=== PATIENT | female | born 1980 | race Caucasian/White ===

== ENCOUNTER 2022-10-27 15:40 | Inpatient (IN) | payer OTHER ==
[2022-10-27 17:27] VITALS: BMI 17.1
[2022-10-27] MEDS ORDERED: hydrOXYzine PAMOATE 25 MG CAPSULE (FP) PO PRN (22:25)
[2022-10-27] MEDS ORDERED: POLYETHYLENE GLYCOL (HEALTHYLAX) 3350 17 GM PACKET PO PRN (22:25)
[2022-10-27] MEDS ORDERED: NALOXONE HCL (KLOXXADO) 8 MG SPRAY NS PRN (22:25)
[2022-10-27] MEDS ORDERED: COLLOIDAL OATMEAL 1 BAR EACH TP PRN (22:25)
[2022-10-27] MEDS ORDERED: AMMONIUM LACTATE 12% LOTION 225 GM BOTTLE TP PRN (22:25)
[2022-10-27] MEDS ORDERED: NALOXONE HCL 0.4 MG/ML VIAL IM PRN (22:25)
[2022-10-27] MEDS ORDERED: P-EPHED 60MG/TRIPROLIDI 2.5MG TABLET PO PRN (22:25)
[2022-10-27] MEDS ORDERED: BENZONATATE 200 MG CAPSULE PO PRN (22:25)
[2022-10-27] MEDS ORDERED: LOPERAMIDE HCL 2 MG CAPSULE PO PRN (22:25)
[2022-10-27] MEDS ORDERED: MAGNESIUM HYDROX 2400MG/30ML ORAL SUSPENSION 30 ML CUP PO PRN (22:25)
[2022-10-27] MEDS ORDERED: ACETAMINOPHEN 325 MG TABLET (FP) PO PRN (22:25)
[2022-10-27] MEDS ORDERED: MAG HYDROX/AL HYDROX/SIMETH 30 ML UNIT-DOSE CUP PO PRN (22:25)
[2022-10-27] MEDS ORDERED: guaiFENesin 600 MG TABLET.ER (FP) PO PRN (22:25)
[2022-10-27] MEDS ORDERED: BENZOCAINE/MENTHOL (CHLORASEPTIC ) LOZENGE MM PRN (22:25)
[2022-10-28] MEDS ORDERED: MELATONIN 5 MG TABLETS PO SCH (01:15)
[2022-10-28] MEDS: BACITRACIN ZINC 15 GM TUBE TOPICAL OINTMENT TP SCH ×3 (01:19→21:36)
[2022-10-28] MEDS: MELATONIN 5 MG TABLETS PO SCH ×2 (01:23→21:38)
[2022-10-28] MEDS: NICOTINE POLACRILEX 2 MG GUM BUC PRN ×3 (01:37→21:42)
[2022-10-28] MEDS ORDERED: ALBUTEROL SO4 HFA INHALER IH PRN (08:58)
[2022-10-28] MEDS ORDERED: methaDONE HCL 10 MG TABLET PO SCH (09:00)
[2022-10-28] MEDS ORDERED: PATIENT'S OWN MEDICATION (NON-FORMULARY) (Efavirenz/Emtricitab/Tenofovir 1 TAB Tab) PO SCH (10:00)
[2022-10-28] MEDS ORDERED: TUBERCULIN PPD 5 TU/0.1ML SYRINGE (IN PATIENT USE ONLY) ID ONE (10:00)
[2022-10-28] MEDS ORDERED: TUBERCULIN PPD 5 TU/0.1ML VIAL ID ONE (10:18)
[2022-10-28] MEDS: PRENATAL VITAMINS W/ FOLIC ACID TABLET (FP) PO SCH (10:20)
[2022-10-28] MEDS ORDERED: EFAVIRENZ 600 MG TABLET PO SCH (10:30)
[2022-10-28] MEDS ORDERED: EMTRICITABINE 200MG/TENOFOVIR 300MG PO SCH (10:30)
[2022-10-28 11:27] LABS: HEMATOCRIT 33.1 % (32.4-45.2); HEMOGLOBIN 11.1 GM/dL (10.7-15.3); MCH 28.9 pg (25.7-33.7); MCHC 33.7 g/dl (32.0-36.0); MEAN CELL VOLUME 85.9 fl (80-96); MEAN PLT VOLUME 9.2 fl (7.5-11.1); PLATELET COUNT 151 10^3/uL (134-434); RBC 3.85 M/mm3 (3.60-5.2); RDW 15.4 % (11.6-15.6); WHITE BLOOD COUNT 2.1 K/mm3 (4.0-10.0)
[2022-10-28 11:29] LABS: PH,URINE 6.5 (5.0-8.0); URINE APPEARANCE CLEAR; URINE BILIRUBIN NEGATIVE (NEGATIVE); URINE COLOR YELLOW; URINE GLUCOSE (UA) NEGATIVE (NEGATIVE); URINE KETONE NEGATIVE (NEGATIVE); URINE LEUK ESTERASE NEGATIVE (NEGATIVE); URINE NITRITE NEGATIVE (NEGATIVE); URINE PROTEIN NEGATIVE (NEGATIVE)
[2022-10-28 11:32] LABS: POTASSIUM 4.1 mmol/L (3.5-5.1)
[2022-10-28 11:53] LABS: ALBUMIN 3.1 g/dl (3.4-5.0); CALCIUM 8.8 mg/dL (8.5-10.1)
[2022-10-28 11:54] LABS: BLOOD UREA NITROGEN 16.8 mg/dL (7-18)
[2022-10-28 11:56] LABS: CREATININE 0.8 mg/dL (0.55-1.3)
[2022-10-28 11:57] LABS: TOT PROT 6.9 g/dl (6.4-8.2)
[2022-10-28 11:58] LABS: BILIRUBIN,TOTAL 0.2 mg/dL (0.2-1)
[2022-10-28 12:01] LABS: SYPHILIS W/ RPR CONF NON-REACTIVE (NONREACTIVE)
[2022-10-28] MEDS: BICTEGRAV/EMTRICIT/TENOFOV (BIKTARVY) 50-200-25 MG TABLET PO SCH (13:39)
[2022-10-28] MEDS: GABAPENTIN 100 MG CAPSULE PO SCH ×2 (13:39→21:37)
[2022-10-28] MEDS: QUEtiapine FUMARATE 200 MG TABLET PO SCH (21:37)
[2022-10-28] MEDS: MIRTAZAPINE 30 MG TABLET PO SCH (21:37)
[2022-10-28] MEDS: PARoxetine HCL 20 MG TABLET PO SCH (21:38)
[2022-10-28] MEDS: THIAMINE HCL 100 MG TABLET (FP) PO SCH (21:38)
[2022-10-29] MEDS: GABAPENTIN 100 MG CAPSULE PO SCH ×3 (07:08→21:33)
[2022-10-29] MEDS: BICTEGRAV/EMTRICIT/TENOFOV (BIKTARVY) 50-200-25 MG TABLET PO SCH (07:08)
[2022-10-29] MEDS: NICOTINE POLACRILEX 2 MG GUM BUC PRN ×2 (07:13→17:40)
[2022-10-29] MEDS: PRENATAL VITAMINS W/ FOLIC ACID TABLET (FP) PO SCH (09:53)
[2022-10-29] MEDS: BACITRACIN ZINC 15 GM TUBE TOPICAL OINTMENT TP SCH ×2 (09:54→21:41)
[2022-10-29] MEDS: SODIUM CHLORIDE 1 GM TABLET PO SCH (15:12)
[2022-10-29] MEDS: MIRTAZAPINE 30 MG TABLET PO SCH (21:33)
[2022-10-29] MEDS: THIAMINE HCL 100 MG TABLET (FP) PO SCH (21:33)
[2022-10-29] MEDS: QUEtiapine FUMARATE 200 MG TABLET PO SCH (21:33)
[2022-10-29] MEDS: PARoxetine HCL 20 MG TABLET PO SCH (21:39)
[2022-10-29] MEDS ORDERED: SULFAMETHOXAZOLE/TRIMETHOPRIM 800MG/160MG D.S. TABLET PO SCH (22:00)
[2022-10-30] MEDS: GABAPENTIN 100 MG CAPSULE PO SCH ×3 (06:55→21:04)
[2022-10-30] MEDS: BICTEGRAV/EMTRICIT/TENOFOV (BIKTARVY) 50-200-25 MG TABLET PO SCH (07:02)
[2022-10-30] MEDS: SULFAMETHOXAZOLE/TRIMETHOPRIM 800MG/160MG D.S. TABLET PO SCH ×2 (07:03→21:04)
[2022-10-30] MEDS: SODIUM CHLORIDE 1 GM TABLET PO SCH (10:58)
[2022-10-30] MEDS: BACITRACIN ZINC 15 GM TUBE TOPICAL OINTMENT TP SCH ×2 (10:58→21:05)
[2022-10-30] MEDS: PRENATAL VITAMINS W/ FOLIC ACID TABLET (FP) PO SCH (10:59)
[2022-10-30 11:50] LABS: INR 0.93 (0.83-1.09); PROTHROMBIN TIME (PATIENT) 10.8 SEC (9.7-13.0)
[2022-10-30 11:52] LABS: ACTIVATED PTT 32.5 SECONDS (25.2-36.5)
[2022-10-30] MEDS: NICOTINE POLACRILEX 2 MG GUM BUC PRN ×2 (12:57→15:14)
[2022-10-30] MEDS: PARoxetine HCL 20 MG TABLET PO SCH (21:04)
[2022-10-30] MEDS: QUEtiapine FUMARATE 200 MG TABLET PO SCH (21:04)
[2022-10-30] MEDS: THIAMINE HCL 100 MG TABLET (FP) PO SCH (21:04)
[2022-10-30] MEDS: MIRTAZAPINE 30 MG TABLET PO SCH (21:04)
[2022-10-30] MEDS: LACTULOSE 20 GM/30 ML UDC (FOR ORAL USE ONLY) PO SCH (21:05)
[2022-10-31] MEDS: GABAPENTIN 100 MG CAPSULE PO SCH ×3 (07:01→21:55)
[2022-10-31] MEDS: SULFAMETHOXAZOLE/TRIMETHOPRIM 800MG/160MG D.S. TABLET PO SCH ×2 (07:03→21:55)
[2022-10-31] MEDS: LACTULOSE 20 GM/30 ML UDC (FOR ORAL USE ONLY) PO SCH ×4 (07:03→21:56)
[2022-10-31] MEDS: BICTEGRAV/EMTRICIT/TENOFOV (BIKTARVY) 50-200-25 MG TABLET PO SCH (07:04)
[2022-10-31] MEDS: SODIUM CHLORIDE 1 GM TABLET PO SCH (10:13)
[2022-10-31] MEDS: PRENATAL VITAMINS W/ FOLIC ACID TABLET (FP) PO SCH (10:13)
[2022-10-31] MEDS: BACITRACIN ZINC 15 GM TUBE TOPICAL OINTMENT TP SCH ×2 (10:14→21:56)
[2022-10-31] MEDS: NICOTINE POLACRILEX 2 MG GUM BUC PRN ×3 (13:35→22:01)
[2022-10-31] MEDS: PARoxetine HCL 20 MG TABLET PO SCH (21:07)
[2022-10-31] MEDS: QUEtiapine FUMARATE 200 MG TABLET PO SCH (21:55)
[2022-10-31] MEDS: MIRTAZAPINE 30 MG TABLET PO SCH (21:55)
[2022-10-31] MEDS: THIAMINE HCL 100 MG TABLET (FP) PO SCH (21:56)
[2022-10-31 22:30] VITALS: RESP 18
[2022-11-01] MEDS: GABAPENTIN 100 MG CAPSULE PO SCH ×3 (07:10→21:46)
[2022-11-01] MEDS: LACTULOSE 20 GM/30 ML UDC (FOR ORAL USE ONLY) PO SCH ×3 (07:12→21:47)
[2022-11-01] MEDS: BICTEGRAV/EMTRICIT/TENOFOV (BIKTARVY) 50-200-25 MG TABLET PO SCH (07:12)
[2022-11-01] MEDS: SULFAMETHOXAZOLE/TRIMETHOPRIM 800MG/160MG D.S. TABLET PO SCH ×2 (07:12→21:45)
[2022-11-01] MEDS: PRENATAL VITAMINS W/ FOLIC ACID TABLET (FP) PO SCH (10:05)
[2022-11-01] MEDS: BACITRACIN ZINC 15 GM TUBE TOPICAL OINTMENT TP SCH ×2 (10:05→21:45)
[2022-11-01] MEDS: SODIUM CHLORIDE 1 GM TABLET PO SCH (10:05)
[2022-11-01] MEDS: NICOTINE POLACRILEX 2 MG GUM BUC PRN ×3 (10:43→17:52)
[2022-11-01] MEDS: MIRTAZAPINE 30 MG TABLET PO SCH (21:45)
[2022-11-01] MEDS: QUEtiapine FUMARATE 200 MG TABLET PO SCH (21:45)
[2022-11-01] MEDS: PARoxetine HCL 20 MG TABLET PO SCH (21:46)
[2022-11-01] MEDS: THIAMINE HCL 100 MG TABLET (FP) PO SCH (21:46)
[2022-11-02] MEDS: LACTULOSE 20 GM/30 ML UDC (FOR ORAL USE ONLY) PO SCH ×3 (06:58→21:37)
[2022-11-02] MEDS: GABAPENTIN 100 MG CAPSULE PO SCH ×3 (07:00→21:35)
[2022-11-02] MEDS: SULFAMETHOXAZOLE/TRIMETHOPRIM 800MG/160MG D.S. TABLET PO SCH ×2 (07:02→21:36)
[2022-11-02] MEDS: BICTEGRAV/EMTRICIT/TENOFOV (BIKTARVY) 50-200-25 MG TABLET PO SCH (07:02)
[2022-11-02] MEDS: NICOTINE POLACRILEX 2 MG GUM BUC PRN ×3 (07:04→21:40)
[2022-11-02] MEDS: PRENATAL VITAMINS W/ FOLIC ACID TABLET (FP) PO SCH (10:38)
[2022-11-02] MEDS: SODIUM CHLORIDE 1 GM TABLET PO SCH (10:39)
[2022-11-02] MEDS: BACITRACIN ZINC 15 GM TUBE TOPICAL OINTMENT TP SCH ×2 (10:39→21:36)
[2022-11-02] MEDS: PARoxetine HCL 20 MG TABLET PO SCH (21:35)
[2022-11-02] MEDS: QUEtiapine FUMARATE 200 MG TABLET PO SCH (21:36)
[2022-11-02] MEDS: THIAMINE HCL 100 MG TABLET (FP) PO SCH (21:36)
[2022-11-02] MEDS: MIRTAZAPINE 30 MG TABLET PO SCH (21:36)
[2022-11-03] MEDS: GABAPENTIN 100 MG CAPSULE PO SCH (06:54)
[2022-11-03] MEDS: LACTULOSE 20 GM/30 ML UDC (FOR ORAL USE ONLY) PO SCH (06:54)
[2022-11-03] MEDS: SULFAMETHOXAZOLE/TRIMETHOPRIM 800MG/160MG D.S. TABLET PO SCH (07:00)
[2022-11-03] MEDS: BICTEGRAV/EMTRICIT/TENOFOV (BIKTARVY) 50-200-25 MG TABLET PO SCH (07:00)
[2022-11-03 07:01] VITALS: BP 105/60; PULSE 64; TEMP 97.1
[2022-11-03] MEDS: PRENATAL VITAMINS W/ FOLIC ACID TABLET (FP) PO SCH (09:05)
[2022-11-03] MEDS: BACITRACIN ZINC 15 GM TUBE TOPICAL OINTMENT TP SCH (09:06)
[2022-11-03] MEDS: SODIUM CHLORIDE 1 GM TABLET PO SCH (09:06)
== END 2022-11-03 09:20 | disposition home or self-care (01) | DRG 772 ==
LOC: YASAS 15:40 → Y5N 22:00
PROVIDERS: ADMIT Allergy & Immunology; ATTEND Psychiatry & Neurology Pain Medicine
PROC: HZ42ZZZ Group Counseling for Substance Abuse Treatment, Cognitive-Behavioral (ICD-10-PCS; principal; 2022-10-27)
DX: F11.20 Opioid dependence, uncomplicated (principal); F14.20 Cocaine dependence, uncomplicated; F17.210 Nicotine dependence, cigarettes, uncomplicated; F19.282 Other psychoactive substance dependence with psychoactive substance-induced sleep disorder; Z21 Asymptomatic human immunodeficiency virus [HIV] infection status; E03.9 Hypothyroidism, unspecified; J45.909 Unspecified asthma, uncomplicated; R79.89 Other specified abnormal findings of blood chemistry; Z86.59 Personal history of other mental and behavioral disorders; Z86.69 Personal history of other diseases of the nervous system and sense organs; Z86.14 Personal history of Methicillin resistant Staphylococcus aureus infection; Z88.8 Allergy status to other drugs, medicaments and biological substances; Z51.81 Encounter for therapeutic drug level monitoring
CPT/HCPCS: 36415; 80053; 81003; 81025; 82140; 85027; 85610; 85730; 86780; 86803; 87040; 87070; 87186; 87205; 87522; 87635; 93005; 93010

== ENCOUNTER 2024-05-09 16:34 | Inpatient (IN) | payer OTHER ==
[2024-05-09 16:52] VITALS: BMI 17.9
[2024-05-09] MEDS ORDERED: DICYCLOMINE HCL 10 MG CAPSULE PO PRN (17:58)
[2024-05-09] MEDS ORDERED: MAG HYDROX/AL HYDROX/SIMETH 30 ML UNIT-DOSE CUP PO PRN (17:58)
[2024-05-09] MEDS ORDERED: MAGNESIUM HYDROX 2400MG/30ML ORAL SUSPENSION 30 ML CUP PO PRN (17:58)
[2024-05-09] MEDS ORDERED: guaiFENesin 600 MG TABLET.ER (FP) PO PRN (17:58)
[2024-05-09] MEDS ORDERED: BENZOCAINE/MENTHOL (CHLORASEPTIC ) LOZENGE MM PRN (17:58)
[2024-05-09] MEDS ORDERED: ONDANSETRON *ODT* 4 MG TABLET SL PRN (17:58)
[2024-05-09] MEDS ORDERED: LOPERAMIDE HCL 2 MG CAPSULE PO PRN (17:58)
[2024-05-09] MEDS ORDERED: POLYETHYLENE GLYCOL (HEALTHYLAX) 3350 17 GM PACKET PO PRN (17:58)
[2024-05-09] MEDS ORDERED: NALOXONE (NARCAN) HCL 4 MG/0.1 ML SPRAY NS PRN (17:58)
[2024-05-09] MEDS ORDERED: NICOTINE POLACRILEX 2 MG LOZENGE BC PRN (17:58)
[2024-05-09] MEDS ORDERED: BENZONATATE 200 MG CAPSULE PO PRN (17:58)
[2024-05-09] MEDS ORDERED: ACETAMINOPHEN 325 MG TABLET (FP) PO PRN (17:58)
[2024-05-09] MEDS: diazePAM 5 MG TABLET PO SCH (22:26)
[2024-05-09] MEDS: SULFAMETHOXAZOLE/TRIMETHOPRIM 800MG/160MG D.S. TABLET PO SCH (22:26)
[2024-05-09] MEDS: METHOCARBAMOL 500 MG TABLET PO PRN (22:27)
[2024-05-09] MEDS: MELATONIN 5 MG TABLETS PO SCH (22:27)
[2024-05-09] MEDS: THIAMINE 100 MG TABLET PO SCH (22:27)
[2024-05-09] MEDS: NICOTINE POLACRILEX 2 MG GUM BUC PRN (22:31)
[2024-05-10] MEDS: BICTEGRAV/EMTRICIT/TENOFOV (BIKTARVY) 50-200-25 MG TABLET PO SCH (09:17)
[2024-05-10] MEDS: PRENATAL VITAMINS W/ FOLIC ACID TABLET (FP) PO SCH (09:17)
[2024-05-10] MEDS ORDERED: methaDONE HCL 40 MG DISPERSABLE TABLET PO SCH ×2 (10:00)
[2024-05-10 10:58] LABS: HEMATOCRIT 29.8 % (34.1-44.9); HEMOGLOBIN 9.2 g/dL (11.2-15.7); MCHC 30.9 g/dl (32.2-35.5); MEAN CELL VOLUME 91.4 fl (79.4-94.8); MEAN PLT VOLUME 10.5 fl (9.4-12.3); PLATELET COUNT # 160 x10^3/uL (182-369); RDW 15.1 % (12.2-17.1)
[2024-05-10 11:04] LABS: CHLORIDE 105 mmol/L (98-107); POTASSIUM 4.1 mmol/L (3.5-5.1); SODIUM 139 mmol/L (136-145)
[2024-05-10 11:18] LABS: ALBUMIN 2.8 g/dl (3.4-5.0); ANION GAP 5 mmol/L (4-13); CALCIUM 8.3 mg/dL (8.5-10.1); CO2 28 mmol/L (21-32); GLUCOSE,RANDOM 86 mg/dL (74-106)
[2024-05-10 11:21] LABS: SGPT/ALT 23 U/L (13-61)
[2024-05-10 11:22] LABS: CREATININE 1.2 mg/dL (0.55-1.3)
[2024-05-10 11:23] LABS: BILIRUBIN,TOTAL 0.2 mg/dL (0.2-1); TOT PROT 7.2 g/dl (6.4-8.2)
[2024-05-10 11:24] LABS: ALK PHOS 142 U/L (45-117); SGOT/AST 28 U/L (15-37)
[2024-05-10] MEDS: GABAPENTIN 100 MG CAPSULE PO SCH (13:34)
[2024-05-10] MEDS: diazePAM 5 MG TABLET PO PRN (13:34)
[2024-05-10] MEDS ORDERED: QUEtiapine FUMARATE 200 MG TABLET PO SCH (22:00)
[2024-05-10] MEDS ORDERED: MIRTAZAPINE 30 MG TABLET PO SCH (22:00)
[2024-05-10] MEDS: PARoxetine HCL 20 MG TABLET PO SCH (22:26)
[2024-05-10] MEDS: QUEtiapine FUMARATE 50 MG TABLET PO SCH (22:26)
[2024-05-10] MEDS: SULFAMETHOXAZOLE/TRIMETHOPRIM 800MG/160MG D.S. TABLET PO SCH (22:54)
[2024-05-11] MEDS: diazePAM 5 MG TABLET PO SCH (05:58)
[2024-05-11] MEDS: QUEtiapine FUMARATE 100 MG TABLET (FP) PO SCH (22:42)
[2024-05-12] MEDS: diazePAM 5 MG TABLET PO ONE (06:21)
[2024-05-12 12:50] VITALS: BP 121/80; PULSE 90; RESP 18; TEMP 97.7
== END 2024-05-12 14:35 | disposition home or self-care (01) | DRG 773 ==
LOC: YASAS 16:34 → Y3N 20:49
PROVIDERS: ADMIT Allergy & Immunology; ATTEND Allergy & Immunology
PROC: HZ2ZZZZ Detoxification Services for Substance Abuse Treatment (ICD-10-PCS; principal; 2024-05-09)
DX: F11.23 Opioid dependence with withdrawal (principal); F10.230 Alcohol dependence with withdrawal, uncomplicated; F17.210 Nicotine dependence, cigarettes, uncomplicated; F31.9 Bipolar disorder, unspecified; F43.10 Post-traumatic stress disorder, unspecified; F41.9 Anxiety disorder, unspecified; B20 Human immunodeficiency virus [HIV] disease; Z79.899 Other long term (current) drug therapy; Z88.8 Allergy status to other drugs, medicaments and biological substances
CPT/HCPCS: 36415; 80053; 80305; 80307; 81025; 85027; 86359; 86360; 86780; 87070; 87186; 87205; 93005; 93010